=== PATIENT | male | born 1965 | race African-American/Black ===

== ENCOUNTER 2023-02-16 07:39 | Emergency (ER) | payer MEDICAID ==
[~2023-02-16] VITALS: Ht 177.8 cm; Wt 83.0 kg
[2023-02-16] MEDS ORDERED: MAGNESIUM/ALUMINUM HYDROXIDE/SIMETHICONE 30ML UDC PO STA (07:46)
[2023-02-16 08:35] LABS: CHLORIDE 106 mEq/L (98-107)
[2023-02-16 08:44] LABS: ETHANOL BLOOD < 10 mg/dL
[2023-02-16 08:49] LABS: BASOPHILS % 0.5 % (0.0-2.0); EOSINOPHILS % 0.5 % (0.0-5.0); HEMATOCRIT. 44.3 % (42.0-52.0); HEMOGLOBIN. 14.9 g/dL (14.0-18.0); LYMPHOCYTES % 15.1 % (20.0-50.0); MEAN CORPUSCULAR HEMOGLOBIN 32.9 pg (28.0-32.0); MEAN CORPUSCULAR VOLUME 97.5 fL (80.0-94.0); MEAN PLATELET VOLUME 7.4 fl (7.4-10.4); MONOCYTES % 6.7 % (2.0-8.0); NEUTROPHILS % 77.2 % (40.0-76.0); PLATELET 281 x1000/uL (130-400); RED BLOOD CELL COUNT 4.55 mill/uL (4.7-6.1); RED CELL DISTRIBUTION WIDTH 13.9 % (11.6-14.6)
[2023-02-16] MEDS ORDERED: NALO4SPR BOTHNSTRLS (09:54)
[2023-02-16 12:00] VITALS: BP 123/81
== END 2023-02-16 13:43 | disposition home or self-care (01) ==
LOC: ER 07:39
DX: T65.91XA Toxic effect of unspecified substance, accidental (unintentional), initial encounter (principal); I10 Essential (primary) hypertension; Y92.9 Unspecified place or not applicable
CPT/HCPCS: 36415; 80053; 80320; 85025; 99283; G0480

== ENCOUNTER 2025-05-01 01:05 | Emergency (ER) | payer MEDICAID ==
[~2025-05-01] VITALS: Ht 175.3 cm; Wt 80.0 kg
[~2025-05-01 01:05] MED LIST: NALO4SPR BOTHNSTRLS
[2025-05-01 01:10] VITALS: O2SAT 99
[2025-05-01] MEDS ORDERED: DEXAMETHASONE 2MG TABLET PO ONE (04:30)
[2025-05-01] MEDS: KETOROLAC 30MG/ML VIAL IM ONE (05:11)
[2025-05-01] MEDS: DEXAMETHASONE 4MG TABLET PO NR (05:11)
[2025-05-01 05:18] VITALS: BP 108/70; PULSE 94; RESP 18; TEMP 36.6; O2SAT 100
[2025-05-01] MEDS ORDERED: IBUP-2029 MT (05:21)
== END 2025-05-01 05:20 | disposition home or self-care (01) ==
LOC: ER 01:05
DX: M79.671 Pain in right foot (principal); M79.672 Pain in left foot; M10.9 Gout, unspecified; I10 Essential (primary) hypertension; Z79.899 Other long term (current) drug therapy
CPT/HCPCS: 99283; 82962; 96372; J1885; J8540